=== PATIENT | female | born 1975 | race Caucasian/White ===

== ENCOUNTER 2022-02-14 16:54 | Emergency (ER) | payer OTHER, SELFPAY ==
[2022-02-14 17:00] VITALS: BP 140/71; PULSE 102; RESP 20; TEMP 36.4; O2SAT 97
--- NOTE | 2022-02-14 17:13 | ECG_ITS ---
Measurements Intervals [place] Rate: 108 P: 79 NH: 128 QRS: 96 QRSD: 97 T: 66 QT: 336 QTc: 451 Interpretive Statements SINUS TACHYCARDIA RIGHT AXIS DEVIATION BASELINE WANDER- V4-V5 ABNORMAL ECG NO PREVIOUS ECG AVAILABLE FOR COMPARISON Electronically Signed On 02-14-2022 22:57:07 CTO by Srini Hamilton D.O.
--- NOTE | 2022-02-14 18:05 | ED.GENADULT ---
HPI - General Adult General Chief complaint: Chest Pain Stated complaint: Chest Pain Time Seen by Provider: 02/14/22 18:05 Source: patient Mode of arrival: ambulatory Limitations: no limitations History of Present Illness HPI narrative: 46-year-old female presents with concern for elevated heart rate, feeling clammy and short of breath. She reports she had an incident today where her smart watch told her heart rate was in 130s, it stayed in the 120s for approximately an hour and during that time she felt clammy and short of breath. She reports she has had cough, fever, body aches for 3 days. Reports her son has influenza. Reports she took Mucinex today at noon before her high heart rate episode started. She reports her mouth feels dry. She denies vomiting, diarrhea MD complaint: Malaise Related Data Home Medications Medication Instructions Recorded Confirmed alprazolam 0.5 mg tablet 0.5 mg PO BID 02/14/22 02/14/22 cyanocobalamin (vitamin B-12) 1,000 mcg IM .Q2WEEK 02/14/22 02/14/22 1,000 mcg/mL injection solution phentermine 37.5 mg tablet 37.5 mg PO DAILY 02/14/22 02/14/22 spironolactone 100 mg tablet 100 mg PO DAILY 02/14/22 02/14/22 Allergies Allergy/AdvReac Type Severity Reaction Status Date / Time No Known Allergies Allergy Verified 02/14/22 17:27 Review of Systems Review of Systems: CONSTITUTIONAL: Reports malaise, chills, sweats, or fever. EYES: Denies visual changes, redness, or discharge. ENT: Reports rhinorrhea, congestion CARDIOVASCULAR: Denies chest pain, palpitations, or edema. RESPIRATORY: Denies cough, episodic dyspnea. GASTROINTESTINAL: Denies abdominal pain, nausea, vomiting, diarrhea, bloody, or mucous stools. GENITOURINARY: Denies dysuria or hematuria. SKIN: Denies rash or itching. MUSCULOSKELETAL: Denies back pain, joint pain, or myalgia. NEUROLOGIC: Denies numbness, weakness, or headache. Reports lightheadedness All systems reviewed & are unremarkable except as noted in HPI and below PMFSH Comments At time of signature, agree with nursing past medical, surgical, social and family history. There is no relevant family history pertinent to the presenting complaint Exam Narrative: GENERAL: Well-appearing, well-nourished, and in no acute distress. HEAD: Normocephalic EYES: PERRLA, conjunctivae clear ENT: Nares clear, turbinates edematous and erythematous, clear discharge. Mucous membranes moist. TM pearly clarke with dull light reflex bilaterally; no tragal tenderness. Oropharynx erythematous without lesions. Tonsils enlarged and without exudate, no drooling, no hoarseness, no trismus, uvula midline. NECK: Supple. No lymphadenopathy CHEST: Clear to auscultation, breath sounds equal. No wheezing, rhonchi, rales, or stridor. No respiratory distress, speaks in full sentences. HEART: Regular rate and rhythm. No murmur heard. SKIN: Warm, dry, no rash. NEURO: Alert and oriented x3. No focal deficits cranial nerves 2-12 grossly intact PSYCH: Normal mood and affect Course Course Emergency Course: Offered patient further evaluation the emergency department, patient declines. She prefers to go home and states she will go to the emergency department if her symptoms worsen. Patient is aware of diagnosis, understands and agrees to treatment plan. Anticipatory guidance given. Patient agrees to follow-up as directed and is aware of reasons to seek care at the emergency department. Portions of this record may have been created with voice recognition software Level of Care: Express Care Visit Vital Signs Vital signs: Vital Signs Temperature 97.5 F L 02/14/22 17:00 Pulse Rate 102 H 02/14/22 17:00 Respiratory Rate 20 02/14/22 17:00 Blood Pressure 140/71 02/14/22 17:00 Pulse Oximetry 97 02/14/22 17:00 Oxygen Delivery Room Air 02/14/22 17:00 Temperature 97.5 F L 02/14/22 17:00 Pulse Rate 102 H 02/14/22 17:00 Respiratory Rate 20 02/14/22 17:00 Blood Pressure 140/71 02/14
== END 2022-02-14 18:18 | disposition home or self-care (01) ==
PROVIDERS: Emergency Provider Nurse Practitioner
DX: J10.1 Influenza due to other identified influenza virus with other respiratory manifestations (principal); R94.31 Abnormal electrocardiogram [ECG] [EKG]; F41.9 Anxiety disorder, unspecified
CPT/HCPCS: 87804; 93005; 99213; G0463

== ENCOUNTER 2025-03-16 19:08 | Emergency (ER) | payer OTHER, SELFPAY ==
--- OUTSIDE RECORDS SUMMARY | 2025-03-16 19:10 | XMS_ITS | Clinical Summary ---
Author Organization [facility] Address [address], [address] [address] Phone Care Team Providers Care Cytology Supervisor Name Role Phone Karson Briggs MD Unavailable Unavailab Miriam Zhang MD Primary Care Provider [phone] Allergies Active Allergy Reactions Criticality Noted Date Comments Amoxicillin-Pot Clavulanate Swelling 02/03/20 19 Medications spironolactone (ALDACTONE) 25 MG Tablet Take 25 mg by mouth daily. Active ALPRAZolam (XANAX) 0.5 MG TabletIndicatio ns:Anxiety Take 1 Tab by mouth 2 times daily as needed for Anxiety. 60 Tab 8 Active raNITIdine (ZANTAC) 300 MG Tablet Take 1 Tab by mouth 2 times daily. 10 Tab 8 Active Additional Information Patient not taking.Reported on 02/11/2020 albuterol 108 (90 Base) MCG/ACT Aerosol Solution take 2 Puffs by inhalation every 4 hours as needed for Cough. 8.5 g 8 Active Additional Information Patient not taking.Reported on 02/11/2020 Benzonatate 200 MG Capsule Take 200 mg by mouth 3 times daily as needed. Active methylPREDNISol one (Medrol) 4 MG Tablet Therapy PackIndications :Allergic reaction, initial encounter Use as per instructions on package. 21 Tab 0 Active Active Problems Problem Noted Date Diagnosed Date Back pain Anxiety Immunizations Immunization Administration Dates Next Due Influenza Vaccine, Quadrivalent, PF 12/07/2016 TDAP Vaccine 12/01/2012 Social History Tobacco Use Types Packs/Day Years Used Date Smoking Tobacco: Never Smokeless Tobacco: Never Tobacco Cessation:Counseling Given: No Alcohol Use Standard Drinks/Week Comments Yes 0 (1 standard drink = 0.6 oz pur e alcohol) not really Comments No Sex and Gender Information Value Date Recorded Sex Assigned at Not on file Legal Sex Female 3:02 AM ELECTRICAL TESTER Gender Identity Not on file Sexual Orientation Not on file Last Filed Vital Signs Vital Sign Reading Time Taken Comments Blood Pressure 108/72 02/11/2020 5:25 PM ELECTRICAL TESTER Pulse 113 02/11/2020 5:25 PM ELECTRICAL TESTER Temperature 36.5 C (97.7 F) 02/11/2020 5:25 PM ELECTRICAL TESTER Respiratory Rate 20 02/11/2020 5:25 PM ELECTRICAL TESTER Oxygen Saturation 98% 02/11/2020 5:25 PM ELECTRICAL TESTER Inhaled Oxygen Concentration - - Weight 61.2 kg (135 lb) 02/02/2019 12:48 PM ELECTRICAL TESTER Height 165.1 cm (5' 5) 02/02/2019 12:48 PM ELECTRICAL TESTER Body Mass Index 22.47 02/02/2019 12:48 PM ELECTRICAL TESTER Plan of Treatment Health Maintenance Due Date Last Done Comments Hepatitis C Virus (HCV) Screening 1977 Hepatitis B Immunization (1 of 3 - 19+ 3-dose series) 1996 Pap Smear 1998 Cervical Cancer Screening (CCS) 08/25/2007 HPV/Cotest 08/25/2007 Cologuard 2022 Immunochemical Fecal Occult Blood 2022 Td Immunization Every 10 Years (Adults With 1 Tdap) 12/01/2022 12/01/2012 Influenza Immunization (#1) 11/17/202401/18, 12/28/2017, 12/07/2016 SARS-COV-2 Immunization ( season) 2024 Mammogram 04/24/2025 04/24/2024, 02/16, 01/13/2021, Additional history exists Colonoscopy 01/18/2032 01/17/2022 Colorectal Cancer Screening 01/18/2032 Respiratory Syncytial Virus (RSV) Immunization (Adult) (1 - 1-dose 75+ series) 2052 Discussion re Starting/Frequency of Mammograms Completed 04/24/2024, 02/28/2022, 01/13/2021, Additional history exists Human Papillomavirus (HPV) Immunization (No Doses Required) Completed Meningococcal Immunization (ACWY) Aged Out No longer eligible based on patient's age to complete this topic Pneumococcal Immunization Combined Aged Out No longer eligible based on patient's age to complete this topic Rotavirus Immunization Aged Out No lo nger eligible based on patient's age to complete this topic Procedures Procedure Name Priority Date/Time Associated Diagnosis Comments KAYKAY SCREENING HOLLY W IMPL DIGITAL W CAD W ROSIE Routine 04/24/2024 3:13 PM ELECTRICAL TESTER Visit for screening mammogram from Last 3 Months or Most Recently Relevant to Health Maintenance Results * KAYKAY SCREENING HOLLY W IMPL DIGITAL W CAD W ROSIE (04/24/2024 3:13 PM ELECTRICAL TESTER) Anatomical Region Laterality Modality breast Bilateral Mammography 04/24/2024 2:52 PM ELECTRICAL TESTER Narrative 04/25/2024 7:38 AM ELECTRICAL TESTER - KAYKAY SCREENING HOLLY W IMPL DIGITAL W CAD W ROSIE BILATERAL DIGITAL SCREENING MAMMOGRAM 3D/2D WITH CAD WITH MEDIOLATERAL OBLIQUE CRANIOCAUDAL WITH AUGMENTATION: 04/24/2024 The study was acquired using digital technology and interpreted from soft copy. Current study was also evaluated with ICAD version 7.2. 2D digital mammographic views, as well as 3D digital tomosynthesis were performed in the CC and MLO projections. CLINICAL: Routine screening. Patient has no complaints. No personal history of cancer. No family history of breast cancer. COMPARISONS: Comparison is made to exams dated: 12/18/2018, 01/13/2021, and 02/28/2022 [facility]. BREAST TISSUE:The breasts are heterogeneously dense, which may obscure small masses. FINDINGS: Bilateral breast implants are present. There is a change and lobulation of the left breast implant. No significant masses, calcifications, or other findings are seen in either breast. There has been no significant interval change. IMPRESSION: BENIGN Change in the shape of the left breast implant. Intracapsular rupture can not be excluded. An MRI could be obtained if indicated. There is no mammographic evidence of malignancy. A 1 year screening mammogram is recommended. A letter will be sent to the patient with these results. The patient will be entered into a reminder system with a target due date of 1 year for her next screening exam. Electronically signed by: Leticia Acharya M.D. ll/:04/24/2024 16:41:44 [employer] Pilot(s): RT Feli(R)(M), [facility] letter sent: Normal Exam Reading location: [place] Mammogram BI-RADS: Category 2: Benign Procedure Note Leticia Acharya MD - 04/25/2024 - KAYKAY SCREENING HOLLY W IMPL DIGITAL W CAD W ROSIE BILATERAL DIGITAL SCREENING MAMMOGRAM 3D/2D WITH CAD WITH MEDIOLATERAL OBLIQUE CRANIOCAUDAL WITH AUGMENTATION: 04/24/2024 The study was acquired using digital technology and interpreted from soft copy. Current study was also evaluated with ICAD version 7.2. 2D digital mammographic views, as well as 3D digital tomosynthesis were performed in the CC and MLO projections. CLINICAL: Routine screening. Patient has no complaints. No personal history of cancer. No family history of breast cancer. COMPARISONS: Comparison is made to exams dated: 12/18/2018, 01/13/2021, and 02/28/2022 [facility]. BREAST TISSUE:The breasts are heterogeneously dense, which may obscure small masses. FINDINGS: Bilateral breast implants are present. There is a change and lobulation of the left breast implant. No significant masses, calcifications, or other findings are seen in either breast. There has been no significant interval change. IMPRESSION: BENIGN Change in the shape of the left breast implant. Intracapsular rupture can not be excluded. An MRI could be obtained if indicated. There is no mammographic evidence of malignancy. A 1 year screening mammogram is recommended. A letter will be sent to the patient with these results. The patient will be entered into a reminder system with a target due date of 1 year for her next screening exam. Electronically signed by: Leticia Acharya M.D. ll/:04/24/2024 16:41:44 [employer] Helic[employer] Pilot(s): RT Feli(R)(M), [facility] letter sent: Normal Exam Reading location: [place] Mammogram BI-RADS: Category 2: Benign Karson Briggs MD IMG MAMMO ORDERABLES Final Result from Last 3 Months or Most Recently Relevant to Health Maintenance Insurance [employer] Care Teams Cytology Supervisor Relationship Specialty Start Date End Date Miriam Nuñez MD [address] [address] PCP - General Internal Medicine 12/25/17 Karson Briggs MD Consulting Physician Obstetrics & Gynecology 08/03/16
--- OUTSIDE RECORDS SUMMARY | 2025-03-16 19:10 | XMS_ITS | Clinical Summary ---
Author Organization [facility] Address [address] [place] [address] Care Team Providers Care Product Examiner Name Role Phone Kelsie Fernandez NP Primary Care Provider [phone] Allergies Active Allergy Reactions Criticality Noted Date Comments Amoxicillin-Pot Clavulanate Swelling Medium 02/03/20 19 Penicillins Anaphylaxis High 03/18/2018 Medications ALPRAZolam (XANAX) 0.5 mg tablet Take 1 tablet (0.5 mg total) by mouth 2 (two) times a day as needed 11/06/19 18 Active phentermine (ADIPEX-P) 37.5 mg tablet 1 12/17/19 19 Active cyanocobalamin (Vitamin B-12) 1,000 mcg/mL injection INJECT 1 ML INTRAMUSCULARLY EVERY 2 WEEKS 05/09/19 22 Active BD Insulin Syringe Ultra-Fine 1 mL 31 gauge x 5/16 syringe USE FOR B12 SUBCUTANEOUSLY EVERY 14 DAYS 06/11/19 22 Active BD SafetyGlide TB Reg Bevel 1 mL 27 x 1/2 syringe USE TO INJECT B12 UNDER THE SKIN ONCE PER WEEK 06/10/19 22 Active spironolactone (ALDACTONE) 100 mg tablet Take 1 tablet (100 mg total) by mouth every morning 05/09/19 22 Active fluticasone propionate (FLONASE) 50 mcg/actuation nasal sprayIndication s:Viral URI with cough Administer 2 sprays into each nostril daily 1 each 09/18/19 24 Active Additional Information Patient not taking.Reported on 12/26/2024 benzonatate (TESSALON) 200 mg capsuleIndicati ons:Viral URI with cough Take 1 capsule (200 mg total) by mouth 3 (three) times a day as needed for cough 42 capsule 09/18/19 24 Active Additional Information Patient not taking.Reported on 12/26/2024 Active Problems Problem Noted Date Diagnosed Date Encounter for screening colonoscopy 10/07/2021 Overview (10/07/2021): Added automatically from request for surgery [id number] Back pain 04/16/2021 Anxiety 04/16/2021 Nausea 04/05/2015 Overview (06/22/2016): Nausea Encounters Date Type Department Care Team Description 01/08/2025 Results Follow-Up Joseph Rodriguez [address] [facility] [address] [place] [address] Muriel Philip NP US Pelvis W Endovaginal 12/29/2024 3:00 PM CDT Ancillary Procedure Joseph Rodriguez [address] [place] [address] [address] [place] [address] Abnormal uterine bleeding 12/26/2024 10:00 AM CDT Office Visit Joseph Rodriguez [address] [place] [address] [address] [place] [address] Muriel Philip NP Abnormal uterine bleeding (Primary Dx); Rippling of breast implant, initial encounter from Last 3 Months Surgical History Surgery Date Site/Laterality Comments OTHER SURGICAL HISTORY Dental-Laperscopy OTHER SURGICAL HISTORY 03/19/2002 - 03/18/2003 : 13 hr labor OTHER SURGICAL HISTORY 03/19/2011 - 03/18/2012 : LAPAROSCOPY Laparoscopy OTHER SURGICAL HISTORY Laparoscopy x 5 total lifetime for cyst. OTHER SURGICAL HISTORY 03/19/2012 - 03/18/2013 Ruptured hemorrhagic cyst.: Laparoscopy OTHER SURGICAL HISTORY 03/19/2013 - 03/18/2014 Breast reduction, lift and augmentation. OTHER SURGICAL HISTORY Bilateral salpingectomy OTHER SURGICAL HISTORY D&C OTHER SURGICAL HISTORY Menorrhagia: Novasure endom. ablation. ENDOMETRIAL ABLATION AUGMENTATION MAMMAPLASTY CYSTOSCOPY TUBAL LIGATION 04/01/2014 Bilateral COLPOSCOPY 12/19/2015 COLONOSCOPY 04/19/2015 - 05/17/2015 Medical History Medical History Date Comments Hx Other Medical ; Outc ome: 40W0D week 6lb(s) 9 oz Female Hx Other Medical ; Outc ome: 40W0D week 9lb(s) 2 oz Male Hx Other Medical Ruptured hemorr hagic cyst.; Comments: [facility] 01/19/2014 - JT 01/19/2014 -At [facility]. Hx Other Medical Menorrhagia Ovarian cyst Colon polyp Family History Medical History Relation Name Comments Osteoporosis Mother Osteoporosis; Cancer Other 1 Cancer -; Osteoporosis Other 2 Family history of Osteoporosis; Relation Name Status Comments Mother Other 1 Other 2 Social History Tobacco Use Types Packs/Day Years Used Date Smoking Tobacco: Never Smokeless Tobacco: Never Tobacco Cessation:Counseling Given: Not Answered Alcohol Use Standard Drinks/Week Comments No 0 (1 standard drink = 0.6 oz pur e alcohol) PHQ-2 Answer Date Recorded PHQ-2 Total Score (If total score is 3 or more points, staff should administer the PHQ-9) 0 09/10/2024 Comments No Sex and Gender Information Value Date Recorded Sex Assigned at Not on file Legal Sex Female 1:23 AM WEB SITE MANAGER Gender Identity Not on file Sexual Orientation Not on file Obstetrics History Para Term AB IAB SAB Ectopic Multiple Livin g Live Births 2 2 2 2 2 Date Outcome GA Total Labor Labor/2nd/3rd Weight Sex Type Anes PTL Vanita A1 A5 Name Clin 2002 Term F Vag-S pont Living 2011 Term M Vag-S pont Living Complications:None Last Filed Vital Signs Vital Sign Reading Time Taken Comments Blood Pressure 110/78 12/26/2024 10:24 AM CDT Pulse 87 09/18/2024 6:47 PM CDT Temperature 36.7 C (98 F) 09/18/2024 6:47 PM CDT Respiratory Rate 16 09/18/2024 6:47 PM CDT Oxygen Saturation 99% 09/18/2024 6:47 PM CDT Inhaled Oxygen Concentration - - Weight 58.1 kg (128 lb) 12/26/2024 10:24 AM CDT Height 165.1 cm (5' 5) 12/26/2024 10:24 AM CDT Body Mass Index 21.3 12/26/2024 10:24 AM CDT Plan of Treatment Health Maintenance Due Date Last Done Comments Hepatitis C Screening 1975 Hepatitis B Screening 08/25/1995 DTaP/Tdap/Td Vaccine (2 - Td or Tdap) 12/01/2022 12/01/2012 Influenza Vaccine (#1) 2024 12/28/2017, 2016 Breast Cancer Screening-Mammogram 04/24/2025 04/24/2024, 04/24/2024, 04/24/2024, Additional history exists Cervical Cancer Screening 09/10/20252024, 09/07/2023, 06/24/2021, Additional history exists Depression Screening 09/10/2025 09/10/2024, 09/07/2023, 06/24/2021, Additional history exists Regular Well Visit/Exam 18-64 09/10/2025 09/10/2024, 09/07/2023, 06/24/2021, Additional history exists Colon Cancer Screening-Colonoscopy 01/18/2032 01/17/2022, 04/26/2015, 04/26/2015, Additional history exists Pneumococcal vaccine <65 Aged Out No longer eligible based on patient's age to complete this topic Procedures Procedure Name Priority Date/Time Associated Diagnosis Comments US PELVIS W ENDOVAGINAL Schedule Routine, Read Routine (OP Routine) 12/29/2024 1:50 PM CDT Abnormal uterine bleeding PAP, REFLEX HPV Routine 09/10/2024 12:48 PM CDT Well woman exam SCREENING MAMMOGRAM BILATERAL W ARDEN Schedule Routine, Read Routine (OP Routine) 04/24/2024 9:34 AM WEB SITE MANAGER COLONOSCOPY 01/17/2022 7:32 AM CDT from Last 3 Months or Most Recently Relevant to Health Maintenance Results * US Pelvis W Endovaginal (12/29/2024 1:50 PM CDT) Cul de Sac No free fluid visualized VIEWPOINT Endometrial Thickness 3.2 mm&millim eters VIEWPOINT Anatomical Region Laterality Modality Pelvis N/A Ultrasound 12/29/2024 2:00 PM CDT Impressions 01/04/2025 4:38 PM CDT 1. Normal size heterogeneous uterus. Some linear striations are seen, possible adenomyosis. 2. Normal appearing left ovary. 3. Right ovary is surgically absent. 4. 21 mm simple right adnexal cyst. Narrative Procedure Note Karson Briggs MD - 01/04/2025 IMPRESSION: 1. Normal size heterogeneous uterus. Some linear striations are seen,possible adenomyosis. 2. Normal appearing left ovary. 3. Right ovary is surgically absent. 4. 21 mm simple right adnexal cyst. us Muriel Philip BRIDGE INSPECTOR IMG US PROCEDURES Final Result * Pap, reflex HPV (09/10/2024 12:48 PM CDT) CLINICAL INFORMATION: [facility] Comment:SCREENING LMP [facility] Comment:UNKNOWN Previous Pap [facility] Comment:NONE GIVEN Prev. Bx [facility] Comment:NONE GIVEN SOURCE: [facility] Comment:Cervix, Endocervix Pap, specimen adequacy [facility] Comment: Satisfactory for evaluation. Endocervical/transformation zone component absent. Age and/or menstrual status not provided HPV interp [facility] Comment: Cytology Results: Negative for intraepithelial lesion or malignancy. COMMENTS [facility] Comment: This Pap test has been evaluated with computer assisted technology. Machinist Instructor Anni Weeks [facility] Comment: SXS, CT(ASCP) CT screening location: [facility], [address] [place] [address] [address], [place] [address] Consumer Attorney: RYAN DANIEL MD, CLIA: [id number] Comment [facility] Comment: EXPLANATORY NOTE: The Pap is a screening test for cervical cancer. It is not a diagnostic test and is subject to false negative and false positive results. It is most reliable when a satisfactory sample, regularly obtained, is submitted with relevant clinical findings and history, and when the Pap result is evaluated along with historic and current clinical information. Thin prep 09/10/2024 12:4 8 PM CDT 09/11/2024 3:01 PM CDT us Muriel Philpi BRIDGE INSPECTOR LAB CYTOLOGY ORDERABLES Final Re sult [facility] [address] [address] * Screening Mammogram Bilateral [place] (04/24/2024 9:34 AM WEB SITE MANAGER) Anatomical Region Laterality Modality Breast Bilateral Mammography Historical Provider [facility] MAMMO PROCEDURES Sudha l Result * COLONOSCOPY (01/17/2022 7:32 AM CDT) Anatomical Region Laterality Modality Other Narrative Procedure Note Jules Thompson MD - 01/17/2022 7:32 AM CDT [facility] Patient Name: Telma Craft Procedure Date: 01/17/2022 7:32 AM Date of : 1975 Admit Type: Outpatient Age: 46 Gender: Female Attending MD: Jules Thompson M.D. Room: [facility] END[facility]COPY ROOM 2 Note Status: Finalized Patient Profile: Refer to note in patient chart for documentation of history and physical. Procedure: Colonoscopy Indications: Screening for colorectal malignant neoplasm, Last colonoscopy: April 2015 Referring MD: Marvin Lara Providers: Jules Thompson M.D. Impression: - The entire examined colon is normal. - No specimens collected. Recommendation: - Discharge patient to home. - Resume previous diet. - Continue present medications. - Repeat colonoscopy in 10 years for screening purposes. - Return to primary care physician as previously scheduled. Medicines: Propofol per Anesthesia Complications: No immediate complications. Estimated Blood Loss: Estimated blood loss: none. Procedure: Pre-Anesthesia Assessment: - This assessment was completed [Time ofAssessment] prior to the administration of sedation. The benefits, risks and alternatives of theprocedure and sedation were discussed and informed consentwas obtained. All questions were answered. Please referto the signed informed consent document in the medical record. The bowel preparation used was Miralax and bisacodyl tablets via single dose instruction. The scope was passed under direct vision. TheColonoscope [id number] was introduced through the anus and advanced to the the cecum, identified by appendiceal orifice and ileocecal valve. The colonoscopy was performed without difficulty. The patient tolerated the procedure well. The qualityof the bowel preparation was adequate to identifypolyps 6 mm and larger in size. The ileocecal valve, appendiceal orifice, and rectum werephotographed. Findings: The perianal and digital rectal examinations were normal. The colon (entire examined portion) appeared normal. Electronically signed by Jules Thompson M.D. Jules Thompson M.D. 01/17/2022 9:25:12 AM Number of Addenda: 0 Note Initiated On: 01/17/2022 7:32 AM Procedure Code(s): --- Professional --- G0121, Colorectal cancer screening; colonoscopy on individual not meeting criteria for high risk Diagnosis Code(s): --- Professional --- Z12.11, Encounter for screening for malignant neoplasm of colon CPT copyright 2020 [employer]. All rights reserved. The codes documented in this report are preliminary and upon junior systems analyst reviewmay be revised to meet current compliance requirements. Recognized by the [employer] for promoting quality in endoscopy Jules Thompson MD ENDOSCOPY PROCEDURES Final Re sult from Last 3 Months or Most Recently Relevant to [place] [address] [facility] HMO/[place] [address] [facility] [employer] [place] HMO/POS Advance Directives For more information, please contact: [phone] * Full Code (Latest Code Status on File) Date Activated Date Inactivated Comments 01/17/2022 7:45 AM 01/17/2022 2:24 PM * Full Code Date Activated Date Inactivated Comments 01/17/2022 7:45 AM 01/17/2022 7:45 AM Care Teams Product Examiner Relationship Specialty Start Date End Date Kelsie Fernandez NP PCP - General Nurse Practitioner 01/04/22
[2025-03-16 19:16] VITALS: BP 126/83; PULSE 86; RESP 14; TEMP 36.9; O2SAT 100
--- NOTE | 2025-03-16 19:23 | ED.FEMALEGU ---
HPI - Female Genitourinary General Stated complaint: Urinary Problems Time Seen by Provider: 03/16/25 19:23 Source: patient, RN notes reviewed and old records reviewed Mode of arrival: ambulatory Limitations: no limitations History of Present Illness HPI Narrative: 49-year-old female who presents Express Care with complaints or frequency and pressure with urination and did notice blood clot in her urine which started approximately 6 hours ago. Patient states she did a home UTI kit that was positive. Patient reports history of past UTI's, Patient took Cystex for her symptoms which does not contain any AZO. MD elicited complaint: dysuria and other (frequency and blood in urine) Pertinent past history: other (UTI) Onset (ago): hour(s) (for the past 6 hours) Location of symptoms: urethra Severity: moderate Quality of pain: aching and other (pressure) Vaginal discharge: none Vaginal bleeding: none Treatment prior to arrival: other (cystex) Related Data Home Medications ?Medication ?Instructions ?Recorded ?Confirmed ?Last Taken ?Type alprazolam 0.5 mg tablet 0.5 mg PO BID 02/14/22 02/14/22 Unknown History cyanocobalamin (vitamin B-12) 1,000 mcg IM .Q2WEEK 02/14/22 02/14/22 Unknown History 1,000 mcg/mL injection solution spironolactone 100 mg tablet 100 mg PO DAILY 02/14/22 02/14/22 Unknown History Allergies Allergy/AdvReac Type Severity Reaction Status Date / Time Penicillins Allergy Intermediate hives Verified 03/16/25 19:20 Review of Systems Review of Systems: CONSTITUTIONAL: Denies fever, chills, or sweats. CARDIOVASCULAR: Denies chest pain, palpitations, or edema. RESPIRATORY: Denies cough or dyspnea. GASTROINTESTINAL: Denies abdominal pain, nausea, vomiting, or diarrhea. GENITOURINARY: Reports dysuria, frequency, urgency. Denies flank pain + hematuria. SKIN: Denies rash or itching. MUSCULOSKELETAL: Denies back pain or myalgia. Denies CVA tenderness NEUROLOGIC: Denies headache All systems reviewed & are unremarkable except as noted in HPI and below PMFSH Past Medical History Medical History (Updated 03/17/25 @ 23:06 by Leah Apodaca APRN) Anxiety Urinary tract infection Surgical History Surgical History (Updated 03/17/25 @ 23:04 by Leah Apodaca APRN) H/O toe surgery right H/O uterine ablation H/O laparoscopy x6 Social History Social History (Updated 03/17/25 @ 23:10 by Leah Apodaca APRN) Smoking status: Smoker, status unknown Alcohol intake: current Alcohol use details: social Substance use type: does not use Living arrangements: with family Gender identity (if verbalized by the patient): Female Comments At time of signature, agree with nursing past medical, surgical, social and family history. There is no relevant family history pertinent to the presenting complaint Exam Narrative: GENERAL: Well-appearing, well-nourished, and in no acute distress. HEAD: Normocephalic, atraumatic. NECK: Supple. no lymphadenopathy CHEST: Clear to auscultation. No respiratory distress.SAO2 100% on room air HEART: Regular rate and rhythm. No murmur heard. Normal peripheral pulses. ABDOMEN: Soft, nontender, nondistended, normal active bowel sounds. No CVA tenderness, positive for pressure and discomfort with urination and frequency with some blood noted in urine. no CVA tenderness EXTREMITIES: Normal range of motion. No edema. SKIN: Warm, dry, no rash. NEURO: No focal deficits. Alert and oriented x3. Course Course Level of Care: Express Care Visit Vital Signs Vital signs: Vital Signs Temperature 36.9 C 03/16/25 19:16 Pulse Rate 86 03/16/25 19:16 Respiratory Rate 14 03/16/25 19:16 Blood Pressure 126/83 03/16/25 19:16 Pulse Oximetry 100 03/16/25 19:16 Oxygen Delivery Room Air 03/16/25 19:16 Temperature 36.9 C 03/16/25 19:16 Pulse Rate 86 03/16/25 19:16 Respiratory Rate 14 03/16/25 19:16 Blood Pressure 126/83 03/16/25 19:16 Pulse Oximetry 100 03/16/25 19:16 Oxygen Delivery Room Air 03/16/25 19:16 MDM MDM Narrative Medical decision making narrative: 49 year old female with urinary tract infection symptoms positive for leukocytes and blood in urine, afebrile starting 6 hors ago. Will treat with Cipro RX and culture sent for analysis and sensitivities. anticipatory guidance and reasons to seek care in ED reviewed with understanding voiced. Differential Diagnosis Differential Diagnosis: Differential diagnostic considerations for female urogenital? issues include urinary tract infection, bacterial vaginosis, cervicitis, ovarian cyst, vaginitis, STI exposure, ovarian torsion, ectopic , cyst of Bartholin?s gland, cystitis, dysmenorrhea.?? Lab Data MDM Lab Attestation statement: I personally reviewed the patient's lab results. Lab results narrative: urine dip; glucose negative bilirubin negative ketone negative specific gravity 1.015, blood 3+ pH 7.0 protein trace urobilinogen 0.2 nitrate negative leukocyte 3+ urine culture snet Labs: Lab Results 03/16/25 Range/Units 19:37 POC Urine Color Francesca POC Urine Clarity Cloudy POC Urine pH 7.0 POC Ur Specif [place] 1.015 POC Urine Protein Trace (Negative) POC Ur Glucose (UA) Negative (Negative) POC Urine Ketones Negative (Negative) POC Urine Blood 3+ (Negative) POC Urine Nitrite Negative (Negative) POC Urine Bilirubin Negative (Negative) POC Urine Urobilinogen 0.2 POC U Leukocyte Esteras 3+ (Negative) reviewed Critical Care Time Critical Care Time Critical Care Time: No Discharge Plan Discharge Clinical Impression: Urinary tract infection Qualifiers: Urinary tract infection type: site unspecified Hematuria presence: with hematuria Qualified Code(s): N39.0 - Urinary tract infection, site not specified Patient Disposition: Home Condition: Stable Instructions: Antibiotic Form, Urinary Tract Infection in Women (ED) Additional Instructions: Increase fluids especially cranberry juice and water Avoid caffeine and carbonated beverages Antibiotic as directed Tylenol/ibuprofen for pain or fever Follow-up with her primary care provider if further problems or concerns Recheck if you have fever over 101, nausea and vomiting. If your symptoms persist, change or worsen significantly before you can contact your personal physician then please, without delay, go to the emergency department for further evaluation. Follow-up with PCP in 7-10 days or sooner if needed Follow up with PCP soon in regards to your blood pressure which is elevated above threshold for referral. Blood pressure above 120/80 may indicate pre-hypertension. Patient Language: French Prescriptions: New ciprofloxacin HCl 500 mg tablet 500 mg PO Q12H Qty: 14 0RF Rx Instructions: take with food No Action alprazolam 0.5 mg tablet 0.5 mg PO BID spironolactone 100 mg tablet 100 mg PO DAILY cyanocobalamin (vitamin B-12) 1,000 mcg/mL solution 1,000 mcg IM .Q2WEEK Follow-up/Referrals: UNKNOWN,DOCTOR [Primary Care Provider] Time of Disposition: 19:34 Quality [place] Coma Scale Eyes: Open Motor: Follows Commands
[2025-03-16 19:39] LABS: EDUAAPPEAR Cloudy; EDUABILI Negative (Negative); EDUABLOOD 3+ (Negative); EDUACOLOR1 Amber; EDUAGLUCOSE Negative (Negative); EDUAKETONE Negative (Negative); EDUALEUKO 3+ (Negative); EDUANITRATE Negative (Negative); EDUAPH 7.0; EDUAPROTEIN Trace (Negative); EDUASPGRAVITY 1.015; EDUAUROBILI 0.2
== END 2025-03-16 19:42 | disposition home or self-care (01) ==
PROVIDERS: Emergency Provider Registered Nurse
DX: N39.0 Urinary tract infection, site not specified (principal); F41.9 Anxiety disorder, unspecified; Z72.0 Tobacco use
CPT/HCPCS: 81003; 87077; 87086; 87186; 99213; G0463